=== PATIENT | female | born 1955 | race Hispanic/Latino ===

== ENCOUNTER 2020-06-10 07:10 | Day surgery (SDC) | payer MEDICARE ==
[2020-06-08 11:19] LABS: BASOPHILS % (AUTO) 1.2 % (0.0-5.0); HEMATOCRIT 43.4 % (36-48); LYMPHOCYTES % (AUTO) 33.2 % (21.0-51.0); MEAN CORPUSCULAR HEMOGLOBIN 29.1 pg (27.0-33.0); MEAN CORPUSCULAR HGB CONC 32.7 g/dL (32.0-36.0); MEAN CORPUSCULAR VOLUME 88.9 fL (79-99); MONOCYTES % (AUTO) 11.7 % (3.0-13.0); NEUTROPHILS % (AUTO) 49.7 % (40.0-77.0); PLATELET COUNT (AUTO) 189 K/uL (130-400); RED BLOOD CELL COUNT(AUTO) 4.88 MIL/uL (4.00-5.50); RED CELL DISTRIBUTION WIDTH 12.8 % (11.0-15.5); WHITE BLOOD COUNT (AUTO) 4.9 K/uL (4.8-10.8)
[2020-06-08 11:37] LABS: CREATININE 1.1 mg/dL (0.5-1.5); POTASSIUM 3.8 mmol/L (3.5-5.1)
[2020-06-08 11:42] LABS: INR 0.98 (0.85-1.15); PARTIAL THROMBOPLASTIN TIME 26.3 SEC (26.3-35.5); PROTHROMBIN TIME 10.6 SEC (9.6-11.6)
[2020-06-09 12:32] VITALS: BP 136/77
[~2020-06-10] VITALS: Ht 165.1 cm; Wt 87.2 kg
[~2020-06-10 07:10] MED LIST: FAMO40TA7 PO; OLME1TAB86 PO; SODIUM CHLORIDE 0.9% 1000ML 1,000 ML IV ONE; VERA120T13 PO
[2020-06-10 07:40] VITALS: BP 127/75
[2020-06-10 07:51] VITALS: BP 127/75
[2020-06-10] MEDS ORDERED: MIDAZOLAM HCL 1 MG/ML 2ML VIAL ONE (09:25)
[2020-06-10] MEDS ORDERED: HEPARIN SODIUM 1000UNIT/ML 10ML VIAL ONE (09:25)
[2020-06-10] MEDS ORDERED: MEPERIDINE-PF 25 MG/ML SYG ONE (09:26)
[2020-06-10] MEDS ORDERED: LIDOCAINE HCL 2% 20ML ONE (09:26)
[2020-06-10] MEDS ORDERED: ISOPROTERENOL HCL 0.2 MG/ML AMP/VIAL/BAG ONE (09:41)
--- NOTE | 2020-06-10 10:00 | NUR ---
PROCEDURE CANCELLED PER MD , DISCHARGED PATIENT
== END 2020-06-10 10:00 | disposition home or self-care (01) ==
LOC: DAH 07:10
PROVIDERS: ATTEND Internal Medicine Cardiovascular Disease
DX: I47.1 Supraventricular tachycardia (principal); I10 Essential (primary) hypertension; E78.5 Hyperlipidemia, unspecified; Z79.01 Long term (current) use of anticoagulants; Z79.899 Other long term (current) drug therapy; Z53.8 Procedure and treatment not carried out for other reasons
CPT/HCPCS: 36415; 80048; 85025; 85610; 85730; A4215; A4216; A4221; A4222; A4223 ×3; A4606; A4663; J7030; J1644; J2175; J2250; J3490

== ENCOUNTER 2022-02-22 12:47 | Observation (INO) | payer MEDICARE, OTHER ==
[~2022-02-22] VITALS: Ht 167.6 cm; Wt 83.0 kg
[~2022-02-22 12:47] MED LIST changes: +OLME-11 PO; -OLME1TAB86 PO; -SODIUM CHLORIDE 0.9% 1000ML 1,000 ML IV ONE; -VERA120T13 PO; +VERA120T92 PO
[2022-02-22 13:30] LABS: BASOPHILS % (AUTO) 0.8 % (0.0-5.0); EOSINOPHILS % (AUTO) 3.2 % (0.0-8.0); HEMATOCRIT 42.6 % (36-48); LYMPHOCYTES % (AUTO) 33.1 % (21.0-51.0); MEAN CORPUSCULAR HEMOGLOBIN 27.4 pg (27.0-33.0); MEAN CORPUSCULAR HGB CONC 31.7 g/dL (32.0-36.0); MEAN CORPUSCULAR VOLUME 86.6 fL (79-99); NEUTROPHILS % (AUTO) 53.7 % (40.0-77.0); PLATELET COUNT (AUTO) 187 K/uL (130-400); RED BLOOD CELL COUNT(AUTO) 4.92 MIL/uL (4.00-5.50); RED CELL DISTRIBUTION WIDTH 13.8 % (11.0-15.5); WHITE BLOOD COUNT (AUTO) 5.9 K/uL (4.8-10.8)
[2022-02-22 13:45] LABS: INR 0.98 (0.85-1.15); PROTHROMBIN TIME 10.7 SEC (9.6-11.6)
[2022-02-22 13:46] LABS: PARTIAL THROMBOPLASTIN TIME 28.2 SEC (26.3-35.5)
[2022-02-22 13:48] LABS: ALBUMIN 3.7 g/dL (3.5-5.0); POTASSIUM 4.3 mmol/L (3.5-5.1); TOTAL PROTEIN, SERUM 7.6 g/dL (6.0-8.3)
[2022-02-22 13:59] LABS: B-TYPE NATRIURETIC PEPTIDE 117 pg/mL (0-100)
[2022-02-22 13:59] LABS: APPEARANCE,URINE CLEAR (CLEAR); BILIRUBIN,URINE NEGATIVE (NEGATIVE); COLOR,URINE YELLOW (YELLOW); GLUCOSE, URINE (UA) NEGATIVE (NEGATIVE); KETONES,URINE NEGATIVE (NEGATIVE); LEUKOCYTE ESTERASE ,URINE TRACE (NEGATIVE); NITRATE,URINE NEGATIVE (NEGATIVE); OCCULT BLOOD,URINE NEGATIVE (NEGATIVE); PH,URINE 5.5 (5.0-8.0); PROTEIN,URINE NEGATIVE (NEGATIVE); UROBILINOGEN,URINE 0.2 mg/dL (0.2-1.0)
[2022-02-22] MEDS ORDERED: HYDRALAZINE 20MG/ML VIAL IV ONE ×2 (14:00→15:30)
[2022-02-22 14:44] LABS: BACTERIA,URINE Rare /HPF (None Seen); RBC,URINE 0-1 /HPF (0-1); SQUAMOUS EPITHELIAL CELL,UR Few /HPF (0-2)
[2022-02-22] MEDS ORDERED: ACETAMINOPHEN 500 MG TABLET PO ONE (16:00)
[2022-02-22] MEDS ORDERED: ONDANSETRON 4MG INJ IVP ONE (16:30)
[2022-02-22] MEDS ORDERED: MECLIZINE HCL 25 MG TABLET PO ONE (16:30)
[2022-02-22] MEDS ORDERED: ONDANSETRON 4MG INJ IVP PRN (19:00)
[2022-02-22] MEDS ORDERED: ASPIRIN 81 MG EC TAB PO ONE (19:30)
[2022-02-22] MEDS: ACETAMINOPHEN 325 MG TAB PO PRN ×2 (20:17→23:40)
[2022-02-22] MEDS: APIXABAN 5 MG TABLET PO SCH (21:00)
[2022-02-22] MEDS ORDERED: NIFEDIPINE 10 MG CAP PO SCH (21:00)
[2022-02-22] MEDS: NIFEDIPINE 10 MG CAP PO SCH (21:12)
[2022-02-22] MEDS: FAMOTIDINE 20MG TAB PO SCH (21:12)
[2022-02-22 21:50] VITALS: BP_SYST 164; BP_SYST 173; BP_DIAS 104
[2022-02-22] MEDS ORDERED: CLONIDINE HCL 0.1 MG TABLET PO ONE (23:00)
[2022-02-23] VITALS (7 sets, daily range): BP systolic 104–159; BP diastolic 53–86
[2022-02-23 05:10] LABS: BASOPHILS % (AUTO) 0.4 % (0.0-5.0); EOSINOPHILS % (AUTO) 0.1 % (0.0-8.0); LYMPHOCYTES % (AUTO) 18.8 % (21.0-51.0); MEAN CORPUSCULAR HEMOGLOBIN 27.3 pg (27.0-33.0); MEAN CORPUSCULAR HGB CONC 32.3 g/dL (32.0-36.0); MEAN CORPUSCULAR VOLUME 84.5 fL (79-99); MONOCYTES % (AUTO) 6.1 % (3.0-13.0); NEUTROPHILS % (AUTO) 74.2 % (40.0-77.0); PLATELET COUNT (AUTO) 207 K/uL (130-400); RED BLOOD CELL COUNT(AUTO) 5.09 MIL/uL (4.00-5.50); RED CELL DISTRIBUTION WIDTH 13.9 % (11.0-15.5); WHITE BLOOD COUNT (AUTO) 8.5 K/uL (4.8-10.8)
[2022-02-23 05:45] LABS: ALBUMIN 3.5 g/dL (3.5-5.0); MAGNESIUM 1.6 mg/dL (1.80-2.40); POTASSIUM 3.6 mmol/L (3.5-5.1); THYROID STIMULATING HORMONE 0.81 uIU/mL (0.36-3.74); TOTAL PROTEIN, SERUM 7.6 g/dL (6.0-8.3)
[2022-02-23] MEDS ORDERED: MAGNESIUM 2GM PREMIX 50ML 50 ML IV PRN (06:30)
[2022-02-23] MEDS ORDERED: POTASSIUM CHLORIDE 20MEQ/100ML 100 ML IV PRN (06:30)
[2022-02-23] MEDS ORDERED: LIDOCAINE HCL-MPF 1% 2ML VIAL IV PRN (06:30)
[2022-02-23] MEDS ORDERED: KCL 20 MEQ ERTAB PO PRN (06:30)
[2022-02-23] MEDS: FAMOTIDINE 20MG TAB PO SCH ×2 (08:27→20:36)
[2022-02-23] MEDS: NIFEDIPINE 10 MG CAP PO SCH ×3 (08:27→20:36)
[2022-02-23] MEDS: APIXABAN 5 MG TABLET PO SCH ×2 (08:27→20:36)
[2022-02-23] MEDS: ASPIRIN 81 MG EC TAB PO SCH (08:27)
[2022-02-23] MEDS: POTASSIUM CHLORIDE 10% ELIXIR 20 MEQ/15 ML UDCUP PO PRN ×2 (08:27→14:39)
[2022-02-23] MEDS ORDERED: ENOXAPARIN SODIUM 40 MG/0.4 ML SYRINGE SQ SCH (09:00)
[2022-02-24 00:32] VITALS: BP 112/56
[2022-02-24 04:57] VITALS: BP 107/61
[2022-02-24 08:00] VITALS: BP 124/77
[2022-02-24 08:08] LABS: HEMATOCRIT 42.4 % (36-48); MEAN CORPUSCULAR HEMOGLOBIN 27.6 pg (27.0-33.0); MEAN CORPUSCULAR HGB CONC 32.1 g/dL (32.0-36.0); MEAN CORPUSCULAR VOLUME 86.2 fL (79-99); RED BLOOD CELL COUNT(AUTO) 4.92 MIL/uL (4.00-5.50); RED CELL DISTRIBUTION WIDTH 14.2 % (11.0-15.5); WHITE BLOOD COUNT (AUTO) 6.8 K/uL (4.8-10.8)
[2022-02-24] MEDS ORDERED: VERA180T60 PO (08:43)
[2022-02-24] MEDS ORDERED: APIX5TAB PO (08:50)
[2022-02-24] MEDS: ASPIRIN 81 MG EC TAB PO SCH (09:22)
[2022-02-24] MEDS: NIFEDIPINE 10 MG CAP PO SCH (09:22)
[2022-02-24] MEDS: FAMOTIDINE 20MG TAB PO SCH (09:23)
[2022-02-24] MEDS: APIXABAN 5 MG TABLET PO SCH (09:23)
== END 2022-02-24 10:45 | disposition home or self-care (01) ==
LOC: EDH 12:47 → INTOOBSV 17:06 → OBSVTOIN 17:06 → EDHIP 17:06 → 3CH 22:00
PROVIDERS: ADMIT Hospitalist; ATTEND Hospitalist
DX: U07.1 COVID-19 (principal); I16.0 Hypertensive urgency; R00.1 Bradycardia, unspecified; R79.89 Other specified abnormal findings of blood chemistry; I10 Essential (primary) hypertension; H93.12 Tinnitus, left ear; Z79.01 Long term (current) use of anticoagulants; Z95.0 Presence of cardiac pacemaker; Z79.899 Other long term (current) drug therapy
CPT/HCPCS: 99285; 70450; 71045; 96375; 87635; 96376; 82550; 83874; 84484 ×3; 80053 ×2; 83880; 85025 ×2; 85610; 85730; 81001; 36415 ×3; 93005; 96365; 96366; 80061; 84443; 83735; 80048; 85027; J0360; J2405 ×2; J3475; G0378